=== PATIENT | male | born 1935 | race Caucasian/White ===

== ENCOUNTER 2016-12-10 05:30 | Day surgery (SDC) | payer MEDICARE ==
[2016-12-06 13:18] LABS: HEMATOCRIT 42.8 % (40.0-51.0)
[2016-12-06 13:30] LABS: BUN (BLOOD UREA NITROGEN) 20 MG/DL (6-23); CALCIUM, SERUM 9.4 MG/DL (8.5-10.4); CHLORIDE, SERUM 106 MMOL/L (96-112); CO2 (CARBON DIOXIDE) 30 MMOL/L (24-34); CREATININE 1.06 MG/DL (0.70-1.30); GFR AFRICAN AMERICAN 75 ML/MIN (>=60); GFR NON AFRICAN AMERICAN 65 ML/MIN (>=60); GLUCOSE, SERUM 93 MG/DL (60-99); POTASSIUM, SERUM 5.4 MMOL/L (3.5-5.3); SODIUM, SERUM 140 MMOL/L (135-148)
[~2016-12-10] VITALS: Ht 188 cm; Wt 100.7 kg
--- NOTE | ~2016-12-10 | OP ---
Record Of Operation [facility] [address] [place]. [address] NAME: MARIA ELENA MORENO JR : 31 [place]US [place] [facility] [facility] [place] [id number] AGE: 81 ADM/REG DATE : 12/10/16 MR#: [id number] REPORT SERV DATE: 12/10/16 DICTATED BY: RACHELE GAVIN DATE: 12/10/16 REPORT STATUS : Draft TRANSCRIBED BY: MARTY DATE: 12/10/16 DATE OF PROCEDURE: PREOPERATIVE DIAGNOSES: 1. Severe stenosis, L4-5. 2. 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 PROCEDURE: 1. Navigation-assisted L4-5 laminectomy. 2. Right L4-5 diskectomy. FLATWORK FOLDER: Bo. ANESTHESIA: General. BLOOD LOSS: 50 mL. FLUIDS: 1500 mL. COMPLICATIONS: None. 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 He has isolated stenosis at L4-5 as well as a disk herniation complicating that. Therefore, I suggested a less invasive decompression and diskectomy at that level. The procedure as well as the risks and alternatives were discussed. The risks discussed include, but are not limited to bleeding, infection, neurologic injury including nerve root injury, arachnoiditis, cauda equina syndrome, rarely embolic phenomena causing paralysis. Position complication such as pressure sores, nerve palsies, blindness, and medical complications such as heart attack, strokes, blood clots, pneumonia, and , and informed consent was obtained. DESCRIPTION OF PROCEDURE: The patient was identified in the holding room. The procedure as well as risks and alternatives were discussed with him. He was taken back to the operating room, where all standard cardiopulmonary monitoring were attached. After smooth induction of general endotracheal anesthesia, the patient was log rolled in a prone position on a well padded Jean spinal table. Bony prominences, extremities, face and spine were all carefully checked and protected. He was administered IV antibiotics and the back was prepped and draped in usual sterile surgical fashion. A less than 1 cm longitudinal incision was made just three fingerbreadths inferior and lateral to the PSIS. Blunt dissection was performed down to the fascia and the percutaneous navigation pin was impacted into the iliac crest and bicortical purchase was obtained for a solid purchase of the Perc navigation pin. O arm was brought in for spin for stereotactic guidance of the procedure. This was tested for accuracy. Once I felt it was accurate, I marked my incision just off the midline to the right-hand side of L4-5. The incision was made under sections made through subcutaneous fat and the fascia was divided longitudinally as was the muscular Record Of Operation [facility] [address] [place]. [address] NAME: MARIA ELENA MORENO JR : 31 [place]US : [place] [facility] [facility] [place] [id number] AGE: 81 ADM/REG DATE : 12/10/16 MR#: [id number] REPORT SERV DATE: 12/10/16 DICTATED BY: RACHELE GAVIN DATE: 12/10/16 REPORT STATUS : Draft TRANSCRIBED BY: MARTY DATE: 12/10/16 fascia again slightly lateral to the midline. The dissection was made to a level above and below the facet joint to allow adequate decompression as well as access to the inferior disk fragment. I then began dilating first with a navigation probe to identify my proper trajectory, dilated up to a 22, placed a 6 cm quadrant retractor around this, this was then affixed to the table, and the microscope was brought in. A small amount of muscle was cauterized and removed from the base of the incision. A high-speed bur was then used to perform a superior laminotomy. The inferior lamina was clarified as well and this was thinned as well with a bur. Ligamentum flavum was then resected from the right-hand side. I then retracted the dura eventually and decompressed the contralateral ligamentum flavum as well as subarticular recess. At this point, I was very happy with my overall decompression. I extended above and below the facet joints bilaterally with a good dorsal and subarticular decompression. I then dissected slightly more laterally to a point where I could get to the lateral dura on the right-hand side. The descending nerve root just above the pedicle was retracted. There is a large capsular layer deep, this was opened up with a 15 blade and multiple disk fragments were removed including pieces of endplate. This space was irrigated with normal saline on an irrigation tube. Further loose fragments were expressed. At this point, I was able to pass a large ball tip nerve hook around the pedicle into the foramina across the disk space up to the disk without any further fragments identified and no further compression of the nerves. Gelfoam with thrombin was packed in the space to control bleeding. Hemostasis was excellent at this point. There were copious irrigation of normal saline was performed. The retractors were very carefully removed. Bipolar cautery was used to control bleeding on the side boykin. The fascia was then closed with 0 PDS, subcutaneous tissue closed with 2-0 PDS, and the skin was closed with Monocryl followed by siria and a sterile dressing. The patient was then log rolled on the hospital bed, awakened, extubated, sent to recovery room without any problems or complications. JOELLE/MARTY Rachele Gavin MD / [id number] CC: MD Miguel Pitts DO
[~2016-12-10 05:30] MED LIST: ASAB PO; FLOMAX4 PO; NORV5 PO; PROTONIX PO; ULTRAM50 PO
== END 2016-12-10 14:18 | disposition home or self-care (01) ==
LOC: SDC 05:30
PROVIDERS: Orthopaedic Surgery Orthopaedic Surgery of the Spine
PROC: 01NB0ZZ Release Lumbar Nerve, Open Approach (ICD-10-PCS; principal; 2016-12-10 07:00)
DX: M48.06 Spinal stenosis, lumbar region (principal); M51.16 Intervertebral disc disorders with radiculopathy, lumbar region; I25.10 Atherosclerotic heart disease of native coronary artery without angina pectoris; I25.2 Old myocardial infarction; I10 Essential (primary) hypertension; K21.9 Gastro-esophageal reflux disease without esophagitis; Z88.8 Allergy status to other drugs, medicaments and biological substances; Z96.653 Presence of artificial knee joint, bilateral; Z79.82 Long term (current) use of aspirin; Z79.899 Other long term (current) drug therapy; Z98.890 Other specified postprocedural states
CPT/HCPCS: 80048; 85014; 85018; 88304; 88311; 93005; A9270-GY; J0690; J1030; J2370; J2405; J2710; J3010; J3370